=== PATIENT | male | born 1960 ===

== ENCOUNTER 2017-10-21 18:47 | Emergency (ER) | payer MEDICAID, OTHER ==
[2017-10-21 18:55] VITALS: BP 148/93; PULSE 109; RESP 14; TEMP 98; O2SAT 99
--- NOTE | 2017-10-21 19:22 | ED PDOC ---
HPI: Psych/Substance Abuse Time Seen by Provider: 10/21/17 19:17 Chief Complaint (Nursing): Substance Abuse Chief Complaint (Provider): substance abuse History Per: Patient Additional Complaint(s): 57-year-old male presents to emergency department for evaluation of substance abuse. Patient states that he snorted a bag of white powder and is not sure if it was cocaine or something mixed with fentanyl. Patient became concerned and was brought to ED for further evaluation. Upon arrival patient feels anxious but denies any acute medical complaints. He denies suicidal or homicidal ideation. Patient also admits to drinking one shot of Maggie and one beer as well. He denies use of any other drugs. Past Medical History Reviewed: Historical Data, Nursing Documentation, Vital Signs Vital Signs: Last Vital Signs Temp 98.0 F 10/21/17 18:52 Pulse 109 H 10/21/17 18:52 Resp 14 10/21/17 18:52 BP 148/93 H 10/21/17 18:52 Pulse Ox 99 10/21/17 18:52 - Medical History PMH: Anxiety, CAD, Depression, HTN - Surgical History Surgical History: Appendectomy, Coronary Stent (X2) - Family History Family History: States: No Known Family Hx - Living Arrangements Living Arrangements: With Family - Social History Current smoker - smoking cessation education provided: Yes Alcohol: Social Drugs: Cocaine - Home Medications Home Medications: Ambulatory Orders Medication Instructions Recorded Clopidogrel [Plavix] 75 mg PO DAILY #30 tab 07/18/16 Vitamin B-12 03/23/17 Xanax 1 mg PO TID PRN 03/23/17 Metoclopramide HCl [Reglan] 5 mg PO BIDAC #60 tablet 03/25/17 Omeprazole 40 mg PO DAILY #30 capsule. 03/25/17 amLODIPine [Norvasc] 10 mg PO DAILY #30 03/25/17 cloNIDine [Catapres] 0.5 mg PO DAILY #30 03/25/17 - Allergies Allergies/Adverse Reactions: Allergies Allergy/AdvReac Type Severity Reaction Status Date / Time No Known Allergies Allergy Verified 03/23/17 12:45 Review of Systems ROS Statement: Except As Marked, All Systems Reviewed And Found Negative Cardiovascular: Negative for: Chest Pain, Palpitations Gastrointestinal: Negative for: Nausea, Vomiting Neurological: Negative for: Headache, Dizziness Psych: Positive for: Other (substance abuse) Physical Exam - Reviewed Nursing Documentation Reviewed: Yes Vital Signs Reviewed: Yes - Physical Exam Appears: Positive for: Well, Non-toxic, No Acute Distress Skin: Negative for: Rash Eye Exam: Positive for: Other (pinpoint pupils bilaterally) Cardiovascular/Chest: Positive for: Regular Rate, Rhythm Respiratory: Positive for: Normal Breath Sounds. Negative for: Respiratory Distress Extremity: Positive for: Normal ROM Neurologic/Psych: Positive for: Alert, Oriented - ECG O2 Sat by Pulse Oximetry: 99 Pulse Ox Interpretation: Normal Medical Decision Making Medical Decision Makin57 year old male here for substance abuse Plan: CBC CMP BAL UDS UA EKG CXR IVF Disposition - Clinical Impression Clinical Impression: Substance abuse - Patient ED Disposition Is Patient to be Admitted: Transfer of Care - Disposition Disposition: Transfer of Care Disposition Time: 20:00 Condition: FAIR Forms: [employer] (Thai) Patient Signed Over To: Daniella Gibbs Handoff Comments: signed out pending diagnostic testing results and final disposition
[2017-10-21] MEDS ORDERED: Sodium Chloride 0.9% 1,000 ML IV STA (19:53)
[2017-10-21 20:07] LABS: BASO % 0.4 % (0.0-2.0); EOS # 0.3 K/uL (0.0-0.7); EOS % 2.9 % (0.0-4.0); HEMATOCRIT 45.2 % (35.0-51.0); LYMPH % 33.7 % (20.0-40.0); MEAN CELL VOLUME 84.4 fl (80.0-94.0); MEAN PLATELET VOLUME 9.6 fl (7.2-11.7); MONO # 0.7 K/uL (0.0-0.8); MONO % 7.7 % (0.0-10.0); NEUT # 4.9 K/uL (1.8-7.0); NEUT % 55.3 % (50.0-75.0); NRBC % 0.1 % (0.0-0.0); RED CELL DISTRIBUTION WIDTH 18.2 % (11.5-14.5); WHITE BLOOD COUNT 8.9 K/uL (4.8-10.8)
[2017-10-21 20:19] LABS: ALCOHOL SERUM 10 mg/dl (0-10); CALCIUM 8.9 mg/dL (8.4-10.2); CARBON DIOXIDE 19 mmol/L (22-30); CHLORIDE 107 mmol/L (98-107); GFR AFRICAN-AMERICAN > 60; GLUCOSE,RANDOM 95 mg/dL (75-110); SODIUM 141 mmol/l (132-148)
--- NOTE | 2017-10-21 20:21 | ED PDOC ---
- Laboratory Results Result Diagrams: 10/21/17 20:01 10/21/17 20:01 - ECG O2 Sat by Pulse Oximetry: 99 Medical Decision Making Medical Decision Making: Endorsed pending sobriety. Disposition - Clinical Impression Clinical Impression: Substance abuse - POA Present On Arrival: None - Disposition Disposition: Routine/Home Disposition Time: 20:59 Condition: GOOD Instructions: Narcotic Abuse (ED) Forms: [employer] (Armenian)
[2017-10-21 20:30] LABS: POTASSIUM 4.8 MMOL/L (3.6-5.0)
[2017-10-21 20:31] LABS: ALB/GLOB RATIO 1.2 (1.0-2.1); ALKALINE PHOSPHATASE 66 U/L (38-126); ALT/SGPT 46 U/L (21-72); AST/SGOT 87 U/L (17-59); BLOOD UREA NITROGEN 17 mg/dl (9-20); TOTAL PROTEIN 8.8 G/DL (6.3-8.2)
[2017-10-21 20:33] LABS: RBC URINE 1 /hpf (0-3); URINE BACTERIA RARE (<OCC); URINE BILIRUBIN NEGATIVE (NEGATIVE); URINE BLOOD NEGATIVE (NEGATIVE); URINE COLOR YELLOW (YELLOW); URINE GLUCOSE (UA) NEG (Normal); URINE KETONE NEGATIVE (NEGATIVE); URINE LEUKOCYTE ESTERASE NEG Leu/uL (Negative); URINE PROTEIN 30 mg/dL (NEGATIVE); URINE UROBILINOGEN 0.2-1.0 mg/dL (0.2-1.0); WBC URINE 3 /hpf (0-5)
--- NOTE | 2017-10-22 09:04 | RAD ---
HISTORY: clearance COMPARISON: 10/26/2013 FINDINGS: LUNGS: No active pulmonary disease. PLEURA: No significant pleural effusion identified, no pneumothorax apparent. CARDIOVASCULAR: Normal. OSSEOUS STRUCTURES: No significant abnormalities. VISUALIZED UPPER ABDOMEN: Normal. OTHER FINDINGS: None. IMPRESSION: No active disease.
--- NOTE | 2017-10-22 10:33 | CARD ---
APPROVED REPORT EKG Measurement Heart [id number] <Conclusion> Normal sinus rhythm Minimal voltage criteria for LVH, may be normal variant Borderline ECG
== END 2017-10-21 21:10 | disposition home or self-care (01) ==
LOC: H.ER 18:47
DX: F19.10 Other psychoactive substance abuse, uncomplicated (principal); F17.200 Nicotine dependence, unspecified, uncomplicated; F32.9 Major depressive disorder, single episode, unspecified; F41.9 Anxiety disorder, unspecified; I10 Essential (primary) hypertension; I25.10 Atherosclerotic heart disease of native coronary artery without angina pectoris; Z95.5 Presence of coronary angioplasty implant and graft

== ENCOUNTER 2018-04-01 21:00 | Emergency (ER) | payer OTHER ==
[2018-04-01 21:04] VITALS: BP 164/114; PULSE 99; RESP 16; TEMP 98.2; O2SAT 97
--- NOTE | 2018-04-01 21:37 | ED PDOC ---
HPI: Psych/Substance Abuse Time Seen by Provider: 04/01/18 21:04 Chief Complaint (Nursing): Alcohol Ingestion Chief Complaint (Provider): Alcohol Ingestion History Per: EMS History/Exam Limitations: intoxication Additional Complaint(s): 57 year old male presents to the emergency department via EMS with alcohol intoxication. Patient is well known to the provider. History of alcohol and opiate abuse. Past Medical History Reviewed: Unable To Obtain (Alcohol intoxication) Vital Signs: Last Vital Signs Temp 98.2 F 04/01/18 21:01 Pulse 99 H 04/01/18 21:01 Resp 16 04/01/18 21:01 BP 164/114 H 04/01/18 21:01 Pulse Ox 97 04/01/18 21:01 - Medical History PMH: Anxiety, CAD, Depression, HTN Denies: Pericarditis (enlarged heart), Chronic Kidney Disease - Surgical History Surgical History: Appendectomy, Coronary Stent (X2) - Family History Family History: States: Unknown Family Hx - Immunization History Hx Tetanus Toxoid Vaccination: No Hx Influenza Vaccination: No Hx Pneumococcal Vaccination: No - Home Medications Home Medications: Ambulatory Orders Medication Instructions Recorded Clopidogrel [Plavix] 75 mg PO DAILY #30 tab 07/18/16 Vitamin B-12 03/23/17 Xanax 1 mg PO TID PRN 03/23/17 Metoclopramide HCl [Reglan] 5 mg PO BIDAC #60 tablet 03/25/17 Omeprazole 40 mg PO DAILY #30 capsule. 03/25/17 amLODIPine [Norvasc] 10 mg PO DAILY #30 03/25/17 cloNIDine [Catapres] 0.5 mg PO DAILY #30 03/25/17 - Allergies Allergies/Adverse Reactions: Allergies Allergy/AdvReac Type Severity Reaction Status Date / Time No Known Allergies Allergy Verified 04/01/18 21:01 Review of Systems Review Of Systems: ROS cannot be obtained secondary to pt's inabilty to answer questions. (Intoxicated) Physical Exam - Reviewed Nursing Documentation Reviewed: Yes Vital Signs Reviewed: Yes - Physical Exam Appears: Positive for: No Acute Distress Head Exam: Positive for: NORMAL INSPECTION Skin: Positive for: Normal Color, Warm, Dry Cardiovascular/Chest: Positive for: Regular Rate, Rhythm. Negative for: Murmur Respiratory: Positive for: Normal Breath Sounds. Negative for: Accessory Muscle Use, Respiratory Distress Gastrointestinal/Abdominal: Positive for: Normal Exam, Soft. Negative for: Tenderness - ECG O2 Sat by Pulse Oximetry: 97 (RA) Pulse Ox Interpretation: Normal Medical Decision Making Medical Decision Making: Time: 2132 Initial impression: Alcohol intoxication Initial plan: Alcohol Serum Drug Screen, Urine AccuCheck Reevaluation Time: 2202 Patient is clinically sober and has a steady gait with fluent speech. States he can take a LYFT ride home. Clinical impression: substance abuse Scribe Attestation: Documented by Martha Navarro, acting as a scribe for Jose Cullen MD Provider Scribe Attestation: All medical record entries made by the Scribe were at my direction and personally dictated by me. I have reviewed the chart and agree that the record accurately reflects my personal performance of the history, physical exam, medical decision making, and the department course for this patient. I have also personally directed, reviewed, and agree with the discharge instructions and disposition. Disposition - Clinical Impression Clinical Impression: Substance abuse - Patient ED Disposition Is Patient to be Admitted: No - Disposition Disposition: Routine/Home Disposition Time: 22:03 Condition: STABLE Instructions: Drug Abuse and Drug Addiction (DC) Forms: [employer] (Slovak)
== END 2018-04-01 22:23 | disposition home or self-care (01) ==
LOC: H.ER 21:00
DX: F10.129 Alcohol abuse with intoxication, unspecified (principal); F11.10 Opioid abuse, uncomplicated; I25.10 Atherosclerotic heart disease of native coronary artery without angina pectoris; Z95.5 Presence of coronary angioplasty implant and graft; I10 Essential (primary) hypertension; F41.9 Anxiety disorder, unspecified; F32.9 Major depressive disorder, single episode, unspecified